=== PATIENT | female | born 2000 | race Caucasian/White ===

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

== ENCOUNTER 2019-02-11 17:15 | Emergency (ER) | payer BC, OTHER ==
[2019-02-11] MEDS ORDERED: Ondansetron ODT TAB* 4 MG PO ONE ×2 (19:06→21:10)
[2019-02-11] MEDS ORDERED: NS 0.9% 1000 ML** 1,000 ML BOLUS ONE ×2 (19:24→20:36)
--- NOTE | 2019-02-11 19:33 | UC ---
Abdominal Pain Female HPI - HPI Summary HPI Summary: 18 yo female with DM type 1 presents with 1 1/2 day hx of vomiting multiple episodes occas epigastric pain no fever no chills no UTI symptoms hx pyelo hx kidney stones denies back pain no food intake since yesterday - History of Current Complaint Chief Complaint: UCGI Stated Complaint: VOMITING Time Seen by Provider: 02/11/19 18:57 Hx Obtained From: Patient Hx Last Menstrual Period: 05/26/16 Onset/Duration: Gradual Onset, Lasting Hours Timing: Constant Severity Initially: Mild Severity Currently: Moderate Pain Intensity: 5 Pain Scale Used: 0-10 Numeric Location: Epigastric Radiates: No Radiates to: Back Character: Cramping Aggravating Factor(s): Food Alleviating Factor(s): Nothing Associated Signs and Symptoms: Positive: Decreased Appetite, Nausea, Vomiting - many, Diarrhea - 1-2. Negative: Fever, Cough, Chest Pain, Dizzy, Back Pain, Constipation, Blood in Stool, Urinary Symptoms, Vaginal Bleeding, Vaginal Discharge Allergies/Adverse Reactions: Allergies Allergy/AdvReac Type Severity Reaction Status Date / Time No Known Allergies Allergy Verified 06/12/17 20:51 PMH/Surg Hx/FS Hx/Imm Hx Previously Healthy: Yes Endocrine History: Diabetes GI/ History: Kidney Stones, Other Other GI/ History: pyelo - Surgical History Surgical History: Yes Surgery Procedure, Year, and Place: ENDOSCOPY AT AGE 16 MONTHS. PILONIDAL CYST [id number] - Family History Known Family History: Positive: Hypertension, Diabetes, Other - depression - Social History Alcohol Use: None Substance Use Type: None Smoking Status (MU): Never Smoked Tobacco - Immunization History Most Recent Influenza Vaccination: Unknown Most Recent Tetanus Shot: Unknown Most Recent Pneumonia Vaccination: Never Vaccination Up to Date: Yes Review of Systems All Other Systems Reviewed And Are Negative: Yes Constitutional: Positive: Fatigue Skin: Positive: Negative Eyes: Positive: Negative ENT: Positive: Negative Respiratory: Positive: Negative Cardiovascular: Positive: Negative Gastrointestinal: Positive: Abdominal Pain, Vomiting, Diarrhea, Nausea Genitourinary: Positive: Negative Motor: Positive: Negative Neurovascular: Positive: Negative Musculoskeletal: Positive: Negative Neurological: Positive: Negative Psychological: Positive: Negative Physical Exam Triage Information Reviewed: Yes Appearance: Well-Appearing, No Pain Distress, Well-Nourished Vital Signs: Initial Vital Signs Temp 97.8 F 02/11/19 17:59 Pulse 106 02/11/19 17:59 Resp 16 02/11/19 17:59 BP 129/72 02/11/19 17:59 Pulse Ox 99 02/11/19 17:59 Vital Signs Reviewed: Yes Eyes: Positive: Conjunctiva Clear ENT: Positive: Hearing grossly normal, Uvula midline, Other - moist intra-oral mucous membranes. Negative: Nasal drainage, Tonsillar swelling, Tonsillar exudate, Trismus, Muffled voice, Hoarse voice Dental Exam: Normal Neck: Positive: Supple, Nontender, No Lymphadenopathy Respiratory: Positive: Chest non-tender, Lungs clear, Normal breath sounds, No respiratory distress, No accessory muscle use Cardiovascular: Positive: RRR, No Murmur, Tachycardia Abdomen Description: Positive: Nontender, No Organomegaly, Soft. Negative: CVA Tenderness (R), CVA Tenderness (L) Bowel Sounds: Positive: Present Musculoskeletal: Positive: ROM Intact, No Edema Neurological: Positive: Alert Psychological Exam: Normal Skin Exam: Normal Re-Evaluation - Re-Evaluation First Eval Re-Evaluation Time: 20:37 Change: Improved - feels a lot better but still tachycardic and no urge to void Second Eval Re-Evaluation Time: 21:09 Change: Improved Comment: up to urinate Abd Pain Female Course/Dx - Course Course Of Treatment: UA +++ protein, +++ bili,++ ketones,+leuks,+ RBCs HCG (-) - Differential Dx/Diagnosis Provider Diagnosis: Dehydration, Gastroenteritis Discharge - Sign-Out/Discharge Documenting (check all that apply): Patient Departure All imaging exams completed and their final reports reviewed: No Studies - Discharge Plan Condition: Stable Disposition: HOME Patient Education Materials: Dehydration (ED) Referrals: Jenelle Byrd MD [Primary Care Provider] - As Soon As Possible (call in AM) Additional Instructions: To ER for new or worsening symptoms zofran one every 6 hours for nausea/vomiting - Billing Disposition and Condition Condition: STABLE Disposition: Home
[2019-02-11 21:41] VITALS: BP 147/88
== END 2019-02-11 21:41 | disposition home or self-care (01) ==
LOC: UCCORT 17:15
DX: K52.9 Noninfective gastroenteritis and colitis, unspecified (principal); E86.0 Dehydration; E10.9 Type 1 diabetes mellitus without complications
CPT/HCPCS: 81003; 84702; 87077; 87086; 87186; 96360; 99212; A9270-GY; G0463